=== PATIENT | male | born 1970 | race Caucasian/White ===

== ENCOUNTER → 2020-03-24 06:43 | Outpatient (CLI) | payer SELFPAY, OTHER ==
--- NOTE | 2020-03-24 06:46 | CT_ITS ---
Examination: Left lower extremity CT without IV contrast. HISTORY: 49-year-old male with left knee pain. TECHNIQUE: Medical protocol CT of the left lower extremity with axial images of the left hip, left knee, and left ankle with multiplanar reformats. Dose optimization was utilized. No comparisons. FINDINGS: Left hip: No fracture. No osseous destruction. Alignment anatomic. No significant degenerative changes. Soft tissues unremarkable. Left knee: No fracture or dislocation. Marked medial compartment osteoarthritis with joint space loss and subarticular sclerosis. Less prominent degenerative changes in the patellofemoral and lateral compartments. There are tricompartmental osteophytes. Moderate simple density suprapatellar joint effusion. Subcentimeter loose bodies in the posterior medial knee joint adjacent to the right femoral condyle. Left ankle: No fracture. No osseous destruction. Alignment anatomic. No significant degenerative changes. Soft tissues unremarkable. CT/Extremity Lower without Contra IMPRESSION: Marked medial compartment osteoarthritis of the left knee with moderate simple density joint effusion and small ossific loose bodies. Left hip and left ankle unremarkable. Electronically Signed: Chandler Mohan, at 7:58 EST Tel , Service support ,
== END ==
PROVIDERS: PCP Nurse Practitioner Family; Referring Provider Specialist; Visit Provider Specialist
DX: M21.162 Varus deformity, not elsewhere classified, left knee (principal); M17.12 Unilateral primary osteoarthritis, left knee
CPT/HCPCS: 73700

== ENCOUNTER → 2020-04-03 12:55 | Outpatient (CLI) | payer OTHER, SELFPAY ==
--- NOTE | 2020-04-03 13:08 | EKG12_ITS ---
Test Reason : PREOP Blood Pressure : / mmHG Vent. Rate : 077 BPM Atrial Rate : 077 BPM P-R Int : 168 ms QRS Dur : 098 ms QT Int : 406 ms P-R-T Axes : 030 007 002 degrees QTc Int : 459 ms Normal sinus rhythm Normal ECG Confirmed by PAULINA BRAVO, PASTORA ([id number]), avid editor SOFIA VOGEL ([id number]) on 04/06/2020 10:25:14 AM Referred By: Barrera Cheney Confirmed By:NIRAV GALLARDO MD
[2020-04-03 13:35] LABS: Absolute Neutrophil Count 3.7 X10^3/uL (2.0-7.7); Basophil# 0.05 X10^3/uL; Basophil% 0.7 % (0-1); Eosinophils% 4.4 % (0-5); Hematocrit 44.2 % (40-54); Hemoglobin 14.1 g/dL (13.0-16.5); Lymphocyte % 32.5 % (19-41); Mean Corp Hgb Conc 31.9 g/dL (32-36); Mean Corpuscular Hgb 28.5 pg (27.0-32.0); Mean Corpuscular Volume 89.5 fL (80-94); Mean Platelet Vol. 9.4 fl (6.2-12.0); Monocyte# 0.51 X10^3/uL; Monocyte% 7.5 % (0-10); NRBC Flagged by Analyzer 0 % (0-5); Neutrophil # 3.68 X10^3/uL (2.7-7.7); Neutrophil % 54.5 % (47-70); Platelet Count 318 K/mm3 (150-450); RBC Distribution Width CV 13.7 % (11.6-14.6); RBC Distribution Width SD 44.7 fl (35.1-43.9); Red Blood Count 4.94 M/mm3 (4.6-6.2); White Blood Count 6.8 K/mm3 (4.4-11.0)
[2020-04-03 14:10] LABS: Anion Gap 7 (5-15); BUN 19 mg/dL (7-18); BUN/Creat Ratio 20.9 RATIO (10-20); Calcium,Total 8.9 mg/dL (8.5-10.1); Chloride 105 mmol/L (98-107); Creatinine, Serum 0.91 mg/dL (0.70-1.30); EST Glomerular Filtration Rate 94 mL/min (>60); Est Glom Filt Rate - Afr Amer 114 mL/min (>60); Glucose 92 mg/dL (74-106); Potassium 3.9 mmol/L (3.5-5.1); Sodium Level 141 mmol/L (136-145)
== END ==
PROVIDERS: PCP Nurse Practitioner Family; Referring Provider Physician Assistant Surgical; Visit Provider Physician Assistant Surgical
DX: Z01.812 Encounter for preprocedural laboratory examination (principal); Z01.810 Encounter for preprocedural cardiovascular examination
CPT/HCPCS: 36415; 80048; 85025; 93005

== ENCOUNTER 2023-03-14 11:20 | Day surgery (SDC) | payer SELFPAY, OTHER ==
--- NOTE | 2023-03-07 08:57 | EKG12_ITS ---
Test Reason : PRE-OP Blood Pressure : / mmHG Vent. Rate : 058 BPM Atrial Rate : 058 BPM P-R Int : 166 ms QRS Dur : 104 ms QT Int : 436 ms P-R-T Axes : -19 009 017 degrees QTc Int : 428 ms Sinus bradycardia Otherwise normal ECG Confirmed by CHANTELLE BRAVO, LITA ([id number]), medical transcription editor TEODORA RAJAN ([id number]) on 03/10/2023 10:54:33 AM Referred By: Philippe Tobar Confirmed By:LITA LOCKHART MD
[2023-03-07 11:18] LABS: Thyroid Stim Hormone (TSH) 4.86 uIU/mL (0.358-3.74)
[2023-03-14] VITALS (7 sets, daily range): BP systolic 102–122; BP diastolic 66–92; PULSE 56–72; RESP 16–18; TEMP 36.5–37.6; O2SAT 93–99; BMI 26.8
[2023-03-14] MEDS: Lactated Ringers 1,000 ML 15 ML IV (11:48)
[2023-03-14] MEDS: Cefazolin 2 GM in 0.9% Normal Saline (100mL Bag) 100 ML IV (13:11)
[2023-03-14] MEDS: Bupivacaine Mpf 0.5% 30 ML VIAL (13:25)
--- NOTE | 2023-03-14 15:09 | OP.PCM_ITS ---
Report of Operation Date of Procedure: 03/14/23 Pre-Operative Diagnosis: Hallux abductus deformity right foot, hammertoe deform ity second digit right foot, hammertoe deformity third digit right foot, dislocation second metatarsophalangeal joint right foot, dislocation third metatarsophalangeal joint right foot, hammertoe de formity fourth digit right foot, hammertoe fifth digit right foot. Post-Operative Diagnosis: Same Surgery/Procedure Performed:: 1. Lapidus fusion with modified Kaufman bunionectomy right foot #2 fusion of the proximal interphalangeal joint second digit right foot #3 fusion of the proximal interphalangeal joint third digit right foot #4 tenotomy and capsulotomy second digit right foot #5 tenotomy capsulotomy third digit right foot #6 tenotomy capsulotomy fourth digit right foot #7 tenotomy capsulotomy 7 digit right foot Description of Surgical Findings:: Patient was brought to the operating room placed on the table in supine position general anesthesia was administered 30 mL of Marcaine plain was injected. Foot was prepped and draped in usual sterile fashion elevated exsanguinated tourniquet was inflated 300 mmHg attention was directed to the dorsal first metatarsal phalangeal joint where a dorsal incision was made deepened by sharp and blunt dissection taking care to retract and preserve all vital structures and Bovie bleeders as necessary an inverted L-shaped capsulotomy was made exposing a prominent medial eminence which was resected with a saw attention was then directed to the lateral metatarsal phalangeal joint where a lateral capsulotomy was performed and a complete lateral release of the fibular sesamoid and adductor tendon was performed and the toe was easily reducible at this point. Attention was directed to the first tarsometatarsal joint where a 4 cm dorsal linear incision was made deepened by sharp and blunt dissection take care tractors or vital structures and Bovie bleeders as necessary same incision was carried down to the periosteum and capsule freeing up [id number] exposing the joint joint was resected with an osteotomy designed to close down the intermetatarsal angle. There was good bone to bone apposition the great toe was D rotated along with the rotation of the first metatarsal was pinned into place a 4.0 mm cannulated screw was inserted into the intermediate phalanx holding the correction closing down the intermetatarsal angle. A 4-hole plate was then inserted dorsally with locking screws x 4 there is good position the wounds were flushed copious amounts normal saline solution deep tissue was closed with Vicryl and the skin was closed with nylon attention was directed to the second toe where a long dorsal linear incision was made over the metatarsal phalangeal joint and the proximal phalangeal joint transverse incision was made across the extensor apparatus of the proximal inner phalangeal joint of the joint was resected and a [employer] hammertoe fusion implant was applied through standard technique the toe is in good position but had some dislocation at the second metatarsal phalangeal joint an incision was made there through a tenotomy and capsulotomy a McGlamery elevator was then used to reduce the deformity and the pin was driven across the metatarsal phalangeal joint and was noted to be in good position the same exact suture was done on the third toe. Was then noted that the fourth and fifth toes were in significant extensive send had very tight extensor tendons so tenotomy's and capsulotomies were performed there through several stab incisions. The deep tissue of all the incisions was closed with 3-0 Vicryl and the skin was closed with 3-0 nylon dry sterile dressing was applied tourniquet was deflated for vascular status restart footnotes digits patient tolerated the anesthesia procedure well Surgeon: Philippe Tobar Type of Anesthesia: General/Supplemental Estimated Blood Loss (mL): 5ml Complications none Admit VTE Documentation VTE Present on Admission: Yes VTE Mechan Device Prophylaxis: SCD's
--- NOTE | 2023-03-14 15:40 | SUR.PHASEI ---
2nd TOE HAS A PIN, PALE IN AREAS w/ SLUGGISH CAP REFILL, ABLE TO WIGGLE TOES
--- NOTE | 2023-03-14 16:10 | SUR.PHASEI ---
1555 AND 1610 NEURO CHECK RIGHT FOOT, FIRST 3 TOES NUMB PER PATIENT WHO IS MORE AWAKE, 2nd TOE SOMEWHAT MOTTLED w/ SLUGGISH CAP REFILL, ABLE TO WIGGLE TOES. +2 POST TIB PULSE. DENIES PAIN.
== END 2023-03-14 17:55 | disposition home or self-care (01) ==
LOC: SDC 11:22 → AC 11:26
PROVIDERS: Anesthesiology; PCP Nurse Practitioner Family; Referring Provider Podiatrist Foot & Ankle Surgery; Visit Provider Podiatrist Foot & Ankle Surgery
PROC: (CPT 28725; principal; 2023-03-14 12:45)
DX: S93.124A Dislocation of metatarsophalangeal joint of right lesser toe(s), initial encounter (principal); M20.41 Other hammer toe(s) (acquired), right foot; M20.11 Hallux valgus (acquired), right foot; E07.9 Disorder of thyroid, unspecified; R73.03 Prediabetes; Z79.899 Other long term (current) drug therapy; X58.XXXA Exposure to other specified factors, initial encounter
CPT/HCPCS: 28297; 28308; 28285; 01480; 36415; 84443; 93005; C1713; J7120; J2405